=== PATIENT | female | born 1945 | race African-American/Black ===

== ENCOUNTER → 2018-12-26 | Outpatient (CLI) | payer OTHER ==
[~2018-12-26] MED LIST: ABILIFY 5 MG TAB5 M1 PO; ABILIFY10 MG PO; ABILIFY15 MG PO; ABILIFY20 MG PO; ACETAMINOPHEN325 M1 PO; ALLOPURINOL 10100 M1 PO; ALLOPURINOL 10100 M3 PO; AMBIEN5 MG PO; ARTIFICIAL TEA1 EACH OP; ASPIR 8181 MG PO; BACLOFEN 10MG T10 MG PO; CALCIUM W/VIT1 EACH PO; CARVEDILOL3.125 MG PO; CEPACOL SORE T1 EAC7 PO; CLONAZEPAM 0.50.5 M1 PO; CLONAZEPAM 1 MG1 M1 PO; COLACE 100 MG100 MG PO; COREG6.25 MG PO; DEPAKOTE ER500 MG PO; DEPAKOTE500 MG PO; DIFLUCAN200 MG PO; DUONEB 2.5-0.5 M3 ML INH; FLONASE 0.05%50 MCG NASAL; FOLIC ACID1 MG PO; GUAIFENESIN PO; HUMIRA40 MG/0.1 SUBQ; HUMIRA40 MG/0.8 SQ; HUMIRA40 MG/0.8 SUBQ; HYDROCODON-ACE1 EAC7 PO; HYDROCODONE-AP1 EAC6 PO; IPRAT-ALBUT 0.5-3 ML INH; KLOR-CON 1010 MEQ PO; LASIX 20 MG TAB20 MG PO; LEVAQUIN 500 M500 M1 PO; LEVAQUIN 500 M500 M2 PO; LISINOPRIL-HCT1 EACH PO; LOZENGES PO; METHOTREXATE 22.5 M1 PO; NEURONTIN 300300 M1 PO; NITROSTAT0.4 M1 SL; NORVASC2.5 MG PO; OMEPRAZOLE 20 M20 M1 PO; OXYBUTYNIN 5 MG5 M2 PO; REQUIP 1 MG TABL1 M1 PO; REQUIP XL2 MG PO; ROPINIROLE HCL2 MG PO; SENNA CONCENTR8.6 MG PO; TEARS PURE DROP15 ML OP; TRAMADOL 50 MG50 MG PO; TUSSIN DM CLEA118 ML; TUSSIN DM CLEA118 ML PO; TYLENOL325 MG PO; VESICARE 5 MG TA5 M1 PO; VITAMIN D1000 UNI1 PO; VITAMIN D3400 UNIT PO
== END ==
LOC: RAD 04:10
DX: Z12.31 Encounter for screening mammogram for malignant neoplasm of breast (principal)

== ENCOUNTER → 2019-01-10 | Outpatient (CLI) | payer OTHER | LOC: ULTRA 10:02 | DX: R92.2 Inconclusive mammogram (principal) ==

== ENCOUNTER → 2020-01-29 | Outpatient (CLI) | payer OTHER | LOC: BC 10:17 | PROVIDERS: ATTEND Internal Medicine | DX: Z12.31 Encounter for screening mammogram for malignant neoplasm of breast (principal) ==